=== PATIENT | female | born 1960 | race Caucasian/White ===

== ENCOUNTER 2017-05-02 11:41 | Outpatient (CLI) | payer OTHER ==
[2017-05-02 12:19] LABS: eGFR (African) > 60; eGFR (Non-African) > 60
== END 2017-05-02 11:42 ==
LOC: LAB 11:41
PROVIDERS: ATTEND Internal Medicine Cardiovascular Disease
DX: E78.00 Pure hypercholesterolemia, unspecified (principal); I25.10 Atherosclerotic heart disease of native coronary artery without angina pectoris
CPT/HCPCS: 36415; 80053; 80061

== ENCOUNTER 2017-05-10 10:26 | Outpatient (CLI) | payer OTHER ==
--- NOTE | 2017-05-10 12:13 | Diagnostic Imaging Report ---
DANIELLE LORD (FAMILY RESOURCE MANAGEMENT PROFESSOR) - OP [facility] [address] [facility].[address] [address] Report Submission Date: May 10, 2017 11:22:48 AM SHAKE TABLE OPERATOR Patient Study Name: CELSO ALMODOVAR Date: May 10, 2017 10:52:42 AM SHAKE TABLE OPERATOR Modality Type: DX Gender: F Description: LOWER EXTREMITY : 62 Institution: [facility] Physician: DANIELLE LORD (CLARA) - OP Examination: Plain film right knee History: HIP/KNEE/LOW BACK PAIN (Hx) Findings: 3 views of the right knee demonstrates normal cortical margins. No fracture. No dislocation. No joint effusion. No soft tissue irregularity. Impression: No acute osseous abnormality Electronically signed on May 10, 2017 11:22:48 AM SHAKE TABLE OPERATOR by: Tristian CHACON
--- NOTE | 2017-05-10 12:14 | Diagnostic Imaging Report ---
DANIELLE LORD (SALES AGENT) - OP [facility] [address] [address] [address] Report Submission Date: May 10, 2017 11:21:43 AM CARE AID Patient Study Name: CELSO ALMODOVAR Date: May 10, 2017 10:47:09 AM CARE AID Modality Type: DX Gender: F Description: SPINE : 62 Institution: [facility] Physician: DANIELLE LORD (CLARA) - OP Examination: Plain film lumbar spine History: HIP/KNEE/LOW BACK PAIN (Hx) Findings: 3 views of the lumbar spine demonstrate normal height. No anterior compression. Few anterior osteophytes. No soft tissue abnormalities. Impression: No acute osseous process. Electronically signed on May 10, 2017 11:21:43 AM CARE AID by: Tristian CHACON
--- NOTE | 2017-05-10 12:15 | Diagnostic Imaging Report ---
DANIELLE LORD (CLARA) - OP [facility] [address] [facility].[address] [address] Report Submission Date: May 10, 2017 11:19:53 AM MANAGEMENT INSTRUCTOR Patient Study Name: CELSO ALMODOVAR Date: May 10, 2017 10:42:50 AM MANAGEMENT INSTRUCTOR Modality Type: DX Gender: F Description: PELVIS : 62 Institution: [facility] Physician: DANIELLE LORD (CLARA) - OP Examination: Plain film right hip History: HIP/KNEE/LOW BACK PAIN (Hx) Comparison exams: None provided Findings: 2 views of the right hip demonstrate normal cortical margins. No fracture no dislocation. No soft tissue abnormality. Impression: No acute osseous abnormality. Electronically signed on May 10, 2017 11:19:53 AM MANAGEMENT INSTRUCTOR by: Tristian CHACON
--- NOTE | 2017-05-10 12:17 | Diagnostic Imaging Report ---
DANIELLE LORD (CLARA) - OP [facility] [address] [facility].[address] [address] Report Submission Date: May 10, 2017 11:19:53 AM RETAIL ASSOCIATE Patient Study Name: CELSO ALMODOVAR Date: May 10, 2017 10:42:50 AM RETAIL ASSOCIATE Modality Type: DX Gender: F Description: PELVIS : 62 Institution: [facility] Physician: DANIELLE LORD (CLARA) - OP Examination: Plain film right hip History: HIP/KNEE/LOW BACK PAIN (Hx) Comparison exams: None provided Findings: 2 views of the right hip demonstrate normal cortical margins. No fracture no dislocation. No soft tissue abnormality. Impression: No acute osseous abnormality. Electronically signed on May 10, 2017 11:19:53 AM RETAIL ASSOCIATE by: Tristian CHACON
== END 2017-05-10 10:28 ==
LOC: RAD 10:26
PROVIDERS: ATTEND Nurse Practitioner Family
DX: M54.5 Low back pain (principal); M25.551 Pain in right hip; M25.561 Pain in right knee
CPT/HCPCS: 72100; 72170; 73502; 73562